=== PATIENT | male | born 1940 | race Caucasian/White ===

== ENCOUNTER 2019-01-26 05:50 | Inpatient (IN) | payer OTHER ==
[~2019-01-26] VITALS: Ht 165.1 cm; Wt 93.4 kg
[2019-01-26] MEDS ORDERED: CEFAZOLIN SOD 1 GM in D5W 50 ML IV ONE (07:00)
[2019-01-26] MEDS ORDERED: LISI1TAB13 PO (07:30)
[2019-01-26] MEDS ORDERED: SIMV80TA2 PO (07:30)
[2019-01-26] MEDS ORDERED: GLIP10TA11 PO (07:30)
[2019-01-26] MEDS ORDERED: PREG75CA PO (07:30)
[2019-01-26] MEDS ORDERED: METF1000 PO (07:30)
[2019-01-26] MEDS ORDERED: ROCURONIUM BROMIDE 10 MG/ML (ZEMURON) IV ONE (07:40)
[2019-01-26] MEDS ORDERED: SEVOFLURANE 15 MIN GAS INH ONE (07:40)
[2019-01-26] MEDS ORDERED: fentaNYL CITRATE/PF 100 MCG/2 ML AMP IVP ONE (07:40)
[2019-01-26] MEDS ORDERED: NS 100 ML BAG IV ONE (07:40)
[2019-01-26] MEDS ORDERED: ISOSULFAN BLUE 5 ML VIAL (LYMPHAZURIN) INJ ONE (07:40)
[2019-01-26] MEDS ORDERED: NS IRRIG SOLN 1000 ML IR ONE (07:40)
[2019-01-26] MEDS ORDERED: LR 1,000 ML IV.SOLN IV ONE (07:40)
[2019-01-26] MEDS ORDERED: PROPOFOL 200MG/ 20ML VIAL (DIPRIVAN) IV ONE (07:40)
[2019-01-26] MEDS ORDERED: LABETALOL 100 MG/ 20ML VIAL IVP ONE (07:40)
[2019-01-26] MEDS ORDERED: MIDAZOLAM HCL 5 MG/5 ML VIAL IVP ONE (07:40)
[2019-01-26] MEDS ORDERED: MORPHINE SULFATE 10MG/10ML PF AMP EP ONE (07:40)
[2019-01-26] MEDS ORDERED: IOHEXOL 0 ML IV ONE (07:57)
[2019-01-26] MEDS ORDERED: fentaNYL CITRATE/PF 100 MCG/2 ML AMP IVP PRN ×2 (08:30)
[2019-01-26] MEDS ORDERED: NALOXONE HCL 0.4 MG/ML AMP (NARCAN) IVP PRN ×2 (08:30)
[2019-01-26] MEDS ORDERED: MORPHINE SULFATE 10MG/10ML PF AMP SP SCH (08:30)
[2019-01-26] MEDS ORDERED: ONDANSETRON HCL 4 MG/2 ML VIAL IVP PRN ×2 (08:30→11:30)
[2019-01-26] MEDS ORDERED: NALBUPHINE HCL 10 MG/ML AMP IVP PRN (08:30)
[2019-01-26] MEDS ORDERED: DIPHENHYDRAMINE INJ 50 MG/ML VIAL IVP PRN (08:30)
[2019-01-26] MEDS ORDERED: KETOROLAC TROMETHAMINE 60 MG/2 ML VIAL IM PRN (08:30)
[2019-01-26] MEDS ORDERED: ACETAMINOPHEN 325 MG TABLET PO PRN (11:30)
[2019-01-26] MEDS ORDERED: HYDROcodone/ACETAMIN 5-325 MG TAB (NORCO/ VICODIN) PO PRN (11:30)
[2019-01-26] MEDS ORDERED: HYDROmorphone 1 MG INJ. 1 MG/ML AMPUL IVP PRN (11:30)
[2019-01-26] MEDS ORDERED: INSULIN REGULAR, HUMAN 100 UNITS/ML, 10 ML VIAL IVP ONE (11:45)
[2019-01-26] MEDS ORDERED: INSULIN REGULAR, HUMAN 100 UNITS/ML, 10 ML VIAL (humuLIN R) ONE (11:46)
[2019-01-26 11:53] LABS: HEMOGLOBIN 15.7 g/dL (14.0-18.0)
[2019-01-26 12:03] LABS: ANION GAP 7 (5-15); CALCIUM 8.8 mg/dL (8.4-11.0); CHLORIDE 100 mmol/L (98-107); CREATININE 0.85 mg/dL (0.55-1.30); GLUCOSE 289 mg/dL (70-99); POTASSIUM 3.7 mmol/L (3.5-5.1); SODIUM SERUM 134 mmol/L (136-145); UREA NITROGEN, BLOOD 13 mg/dL (8-21)
[2019-01-26 12:15] VITALS: BP_SYST 113
[2019-01-26] MEDS: D5/0.45 NS 1,000 ML IV SCH ×2 (12:31→22:22)
[2019-01-26 12:48] VITALS: BP_SYST 113
[2019-01-26] MEDS: HYDROcodone/ACETAMIN 5-325 MG TAB (NORCO/ VICODIN) PO PRN (13:01)
[2019-01-26] MEDS: CEFAZOLIN 1 GM IVPB PREMIX 50 ML IV SCH ×2 (15:33→23:10)
[2019-01-26 16:56] VITALS: BP_SYST 116
[2019-01-26 19:42] VITALS: BP_SYST 99
[2019-01-26] MEDS: FAMOTIDINE PF 20 MG/2 ML VIAL IVP SCH (22:21)
[2019-01-26] MEDS: INSULIN REGULAR, HUMAN 100 UNITS/ML, 10 ML VIAL (humuLIN R) SUBCUT PRN (22:29)
[2019-01-27 00:25] VITALS: BP_SYST 105
[2019-01-27 04:33] VITALS: BP_SYST 100
[2019-01-27] MEDS: D5/0.45 NS 1,000 ML IV SCH ×2 (06:10→17:51)
[2019-01-27] MEDS: INSULIN REGULAR, HUMAN 100 UNITS/ML, 10 ML VIAL (humuLIN R) SUBCUT PRN ×4 (06:14→21:26)
[2019-01-27 07:18] LABS: BASOPHILS % (AUTO) 0.2 % (0.0-2.0); EOSINOPHILS # (AUTO) 0.1 K/uL (0.0-0.4); EOSINOPHILS % (AUTO) 0.4 % (0.0-4.0); HEMOGLOBIN 14.4 g/dL (14.0-18.0); LYMPHOCYTES % (AUTO) 14.7 % (20.5-51.5); MEAN CORPUSCULAR HEMOGLOBIN 30 pg (27-31); MEAN CORPUSCULAR HGB CONC 33 % (32-36); MEAN CORPUSCULAR VOLUME 89 fL (79.0-98.0); MONOCYTES # (AUTO) 1.3 K/uL (0.0-1.0); MONOCYTES % (AUTO) 9.6 % (1.7-9.3); NEUTROPHILS # (AUTO) 10.2 K/uL (1.8-7.7); NEUTROPHILS % (AUTO) 75.1 % (40.0-70.0); PLATELET COUNT (AUTO) 183 K/uL (130-430); RED BLOOD CELL COUNT(AUTO) 4.82 MIL/uL (4.2-6.2); RED CELL DISTRIBUTION WIDTH 13.6 % (9.0-15.0); WHITE BLOOD COUNT (AUTO) 13.6 K/uL (4.8-10.8)
[2019-01-27 08:00] VITALS: BP_SYST 99
[2019-01-27] MEDS: FAMOTIDINE PF 20 MG/2 ML VIAL IVP SCH ×2 (09:44→21:12)
[2019-01-27] MEDS: ENOXAPARIN SODIUM 30 MG/0.3 ML SYRINGE SUBCUT SCH (09:46)
[2019-01-27 11:52] LABS: ALANINE AMINOTRANSFERASE 50 U/L (12-78); ALBUMIN 2.7 g/dL (3.4-4.8); ANION GAP 7 (5-15); ASPARTATE AMINOTRANSFERASE 50 U/L (10-37); CALCIUM 8.3 mg/dL (8.4-11.0); CHLORIDE 98 mmol/L (98-107); CREATININE 1.04 mg/dL (0.55-1.30); GLUCOSE 262 mg/dL (70-99); POTASSIUM 3.5 mmol/L (3.5-5.1); SODIUM SERUM 132 mmol/L (136-145); TOTAL BILIRUBIN 1.1 mg/dL (0.0-1.0); UREA NITROGEN, BLOOD 18 mg/dL (8-21)
[2019-01-27 12:17] VITALS: BP_SYST 102
[2019-01-27] MEDS ORDERED: HYDROCHLOROTHIAZIDE 25 MG TABLET (HCTZ) PO ONE (15:30)
[2019-01-27] MEDS ORDERED: LISINOPRIL 20 MG TABLET PO ONE (15:45)
[2019-01-27] MEDS: HYDROcodone/ACETAMIN 5-325 MG TAB (NORCO/ VICODIN) PO PRN (16:03)
[2019-01-27 16:34] VITALS: BP_SYST 112
[2019-01-27] MEDS: metFORMIN HCL 500 MG TABLET PO SCH (18:20)
[2019-01-27 20:00] VITALS: BP_SYST 107
[2019-01-27] MEDS: PREGABALIN 75 MG CAPSULE (LYRICA) PO SCH (21:12)
[2019-01-27] MEDS: SIMVASTATIN 40 MG TABLET PO SCH (21:12)
[2019-01-28 01:33] VITALS: BP_SYST 123
[2019-01-28] MEDS: D5/0.45 NS 1,000 ML IV SCH ×2 (04:57→14:43)
[2019-01-28] MEDS: INSULIN REGULAR, HUMAN 100 UNITS/ML, 10 ML VIAL (humuLIN R) SUBCUT PRN ×4 (06:33→22:40)
[2019-01-28 06:35] LABS: BASOPHILS # (AUTO) 0.1 K/uL (0.0-0.2); BASOPHILS % (AUTO) 0.7 % (0.0-2.0); EOSINOPHILS % (AUTO) 0.3 % (0.0-4.0); HEMATOCRIT 40.9 % (36-54); HEMOGLOBIN 14.1 g/dL (14.0-18.0); LYMPHOCYTES # (AUTO) 1.4 K/uL (1.0-5.5); LYMPHOCYTES % (AUTO) 8.9 % (20.5-51.5); MEAN CORPUSCULAR HEMOGLOBIN 30 pg (27-31); MEAN CORPUSCULAR HGB CONC 35 % (32-36); MEAN CORPUSCULAR VOLUME 88 fL (79.0-98.0); MONOCYTES # (AUTO) 0.8 K/uL (0.0-1.0); MONOCYTES % (AUTO) 5.2 % (1.7-9.3); NEUTROPHILS % (AUTO) 84.9 % (40.0-70.0); PLATELET COUNT (AUTO) 189 K/uL (130-430); RED BLOOD CELL COUNT(AUTO) 4.65 MIL/uL (4.2-6.2); RED CELL DISTRIBUTION WIDTH 13.3 % (9.0-15.0); WHITE BLOOD COUNT (AUTO) 15.3 K/uL (4.8-10.8)
[2019-01-28 06:37] LABS: ALANINE AMINOTRANSFERASE 36 U/L (12-78); ALBUMIN 2.4 g/dL (3.4-4.8); ANION GAP 9 (5-15); ASPARTATE AMINOTRANSFERASE 31 U/L (10-37); CHLORIDE 100 mmol/L (98-107); CREATININE 0.75 mg/dL (0.55-1.30); GLUCOSE 206 mg/dL (70-99); POTASSIUM 3.7 mmol/L (3.5-5.1); SODIUM SERUM 136 mmol/L (136-145); TOTAL BILIRUBIN 0.9 mg/dL (0.0-1.0); UREA NITROGEN, BLOOD 11 mg/dL (8-21)
[2019-01-28 08:00] VITALS: BP_SYST 127
[2019-01-28] MEDS: HYDROCHLOROTHIAZIDE 25 MG TABLET (HCTZ) PO SCH (08:09)
[2019-01-28] MEDS: PREGABALIN 75 MG CAPSULE (LYRICA) PO SCH ×2 (08:10→22:37)
[2019-01-28] MEDS: FAMOTIDINE PF 20 MG/2 ML VIAL IVP SCH ×2 (08:10→22:37)
[2019-01-28] MEDS: LISINOPRIL 20 MG TABLET PO SCH (08:10)
[2019-01-28] MEDS: metFORMIN HCL 500 MG TABLET PO SCH ×2 (08:10→17:03)
[2019-01-28] MEDS: ENOXAPARIN SODIUM 30 MG/0.3 ML SYRINGE SUBCUT SCH (08:13)
[2019-01-28 12:01] VITALS: BP_SYST 105
[2019-01-28 15:43] VITALS: BP_SYST 115
[2019-01-28 22:35] VITALS: BP_SYST 133
[2019-01-28] MEDS: SIMVASTATIN 40 MG TABLET PO SCH (22:37)
[2019-01-29 01:00] VITALS: BP_SYST 116
[2019-01-29] MEDS: D5/0.45 NS 1,000 ML IV SCH ×2 (01:42→08:48)
[2019-01-29] MEDS: INSULIN REGULAR, HUMAN 100 UNITS/ML, 10 ML VIAL (humuLIN R) SUBCUT PRN ×2 (06:33→11:20)
[2019-01-29 08:00] VITALS: BP_SYST 126
[2019-01-29] MEDS: FAMOTIDINE PF 20 MG/2 ML VIAL IVP SCH (08:44)
[2019-01-29] MEDS: LISINOPRIL 20 MG TABLET PO SCH (08:45)
[2019-01-29] MEDS: PREGABALIN 75 MG CAPSULE (LYRICA) PO SCH (08:45)
[2019-01-29] MEDS: HYDROCHLOROTHIAZIDE 25 MG TABLET (HCTZ) PO SCH (08:45)
[2019-01-29] MEDS: metFORMIN HCL 500 MG TABLET PO SCH (08:45)
[2019-01-29] MEDS: ENOXAPARIN SODIUM 30 MG/0.3 ML SYRINGE SUBCUT SCH (08:47)
[2019-01-29] MEDS ORDERED: METR500T PO (09:37)
[2019-01-29] MEDS ORDERED: LEVO750T19 PO (09:38)
[2019-01-29] MEDS ORDERED: LACT1CAP72 PO (09:38)
[2019-01-29] MEDS ORDERED: FAMO20TA8 PO (09:39)
[2019-01-29] MEDS ORDERED: IBUP100T8 PO (09:41)
[2019-01-29 09:49] VITALS: BP_SYST 126
[2019-01-29 12:02] VITALS: BP_SYST 126
== END 2019-01-29 13:20 | disposition home health service (06) | DRG 415 ==
LOC: SMU 05:50 → STU 12:31 → SMU 01-27 09:52
PROVIDERS: ADMIT Colon & Rectal Surgery; ATTEND Colon & Rectal Surgery
PROC: 0FJ44ZZ Inspection of Gallbladder, Percutaneous Endoscopic Approach (ICD-10-PCS; 2019-01-26)
PROC: 0FN40ZZ Release Gallbladder, Open Approach (ICD-10-PCS; 2019-01-26)
PROC: 0FT40ZZ Resection of Gallbladder, Open Approach (ICD-10-PCS; principal; 2019-01-26 07:30)
DX: K80.12 Calculus of gallbladder with acute and chronic cholecystitis without obstruction (principal); K57.92 Diverticulitis of intestine, part unspecified, without perforation or abscess without bleeding; R65.10 Systemic inflammatory response syndrome (SIRS) of non-infectious origin without acute organ dysfunction; E11.9 Type 2 diabetes mellitus without complications; E78.5 Hyperlipidemia, unspecified; I10 Essential (primary) hypertension; K82.8 Other specified diseases of gallbladder; E66.01 Morbid (severe) obesity due to excess calories; Z68.34 Body mass index [BMI] 34.0-34.9, adult
CPT/HCPCS: 36415; 80048; 80053; 82948; 82962; 85018-TC; 85025; 87081; C1727; C1758; G0378; J0690; J1200; J1650; J1815; J1885; J2250; J2274; J2704; J3010; J3490; J7060; J7120; Q9967; Q9968